=== PATIENT | male | born 1970 | race Caucasian/White ===

== ENCOUNTER 2024-06-27 16:11 | Emergency (ER) | payer MEDICARE, OTHER ==
[~2024-06-27] VITALS: Ht 185.4 cm; Wt 132.0 kg
[~2024-06-27 16:11] MED LIST: Amlodipine Bes2.5 MG PO; CALC.25 PO; HUMALOG100 UNIT/1; INSULANI SC; ONDA4ODT SL; ROSU10TA PO; SODBIC650 PO
[2024-06-27] MEDS ORDERED: NYSTATIN500000 UNI (20:34)
[2024-06-27] MEDS ORDERED: ZOLOFT50 MG (20:34)
[2024-06-27] MEDS ORDERED: PANTOPRAZOLE SO40 M2 (20:34)
[2024-06-27 20:38] LABS: BASOPHILS ABSOLUTE AUTO 0.01 K/mm3 (0.00-0.23); BASOPHILS PERCENT AUTO 0 % (0-2); EOSINOPHILS ABSOLUTE AUTO 0.61 K/mm3 (0.00-0.68); EOSINOPHILS PERCENT AUTO 5 % (0-6); Hematocrit 33.4 % (37.0-53.0); Hemoglobin 11.8 g/dL (13.5-17.5); IMMATURE GRAN ABSOLUTE AUTO 0.05 K/mm3 (0.00-0.10); IMMATURE GRAN PERCENT AUTO 0 % (0-1); LYMPHOCYTES ABSOLUTE AUTO 1.02 K/mm3 (0.84-5.20); LYMPHOCYTES PERCENT AUTO 9 % (21-46); MONOCYTES ABSOLUTE AUTO 0.56 K/mm3 (0.16-1.47); MONOCYTES PERCENT AUTO 5 % (4-13); Mean Corpuscular HGB 30.9 pg (26.0-34.0); Mean Corpuscular HGB Conc 35.3 g/dL (31.5-36.5); Mean Corpuscular Volume 87 fL (80-100); Mean Platelet Volume 10.5 fL (9.1-12.4); NEUTROPHILS ABSOLUTE AUTO 9.23 K/mm3 (1.96-9.15); NEUTROPHILS PERCENT AUTO 80 % (41-73); Platelet Count 254 K/mm3 (150-400); RDW Coefficient Variation 13.2 % (11.7-14.2); RDW Standard Deviation 41.6 fL (35.1-46.3); Red Blood Cell Count 3.82 M/mm3 (4.30-5.90); White Blood Cell Count 11.48 K/mm3 (4.00-11.30)
[2024-06-27 20:56] LABS: Bun/Creatinine Ratio 8.7 (12.0-20.0); C-REACTIVE PROTEIN, EXT RANGE 0.4 mg/dL (0.000-0.300); Creatinine, Blood 7.81 mg/dL (0.60-1.20); Potassium, Blood 3.9 mmol/L (3.5-5.5)
== END 2024-06-27 21:46 | disposition short-term general hospital (02) ==
LOC: ER 16:11
PROVIDERS: Emergency Medicine
DX: M54.50 Low back pain, unspecified (principal); R32 Unspecified urinary incontinence; E11.9 Type 2 diabetes mellitus without complications; I10 Essential (primary) hypertension; Z79.4 Long term (current) use of insulin; Z79.899 Other long term (current) drug therapy
CPT/HCPCS: 51798; 80048; 85025; 85651; 86140; 99284-25

== ENCOUNTER 2024-12-07 01:11 | Emergency (ER) | payer MEDICARE, OTHER ==
[~2024-12-07] VITALS: Ht 185.4 cm; Wt 136.5 kg
[~2024-12-07 01:11] MED LIST changes: +ANEFRIN; +Acetaminophen650 M1 PO; +CHLORPHENIRAMINE PO; +Calcium Acetat667 MG PO; +Crestor40 MG; +DELTASONE20 MG; +GABA100 PO; +GUAI600T33 PO; +HYDROCODONE PO; +LACT10SY PO; +LACTULOSE ENEMA; +LEVFLO500 PO; +LOSA25 PO; +MECL12.5 PO; +NYSTATIN500000 UNI; +ONDA4ODT MM; +OXYC5; +PANTOPRAZOLE SO40 M2; +PROM12.5S PR; +REGLAN1013 PO; +Robaxin750 MG; +ZOLOFT10013 PO; +ZOLOFT50 MG
[2024-12-07] MEDS ORDERED: FentaNYL Citrate 50 MCG/ML 2 ML Injection IV PRN (02:40)
[2024-12-07] MEDS ORDERED: TraMADol HCl 50 MG Tab PO ONE (02:40)
[2024-12-07] MEDS ORDERED: Ondansetron HCl 2 MG / ML 2ML Vial IV ONE (03:15)
== END 2024-12-07 03:41 | disposition other institution (70) ==
LOC: ER 01:11
DX: S82.831A Other fracture of upper and lower end of right fibula, initial encounter for closed fracture (principal); Z68.39 Body mass index [BMI] 39.0-39.9, adult; E11.22 Type 2 diabetes mellitus with diabetic chronic kidney disease; I12.0 Hypertensive chronic kidney disease with stage 5 chronic kidney disease or end stage renal disease; N18.5 Chronic kidney disease, stage 5; Z99.2 Dependence on renal dialysis; E11.40 Type 2 diabetes mellitus with diabetic neuropathy, unspecified; E78.5 Hyperlipidemia, unspecified; Z79.2 Long term (current) use of antibiotics; Z79.899 Other long term (current) drug therapy; Z79.4 Long term (current) use of insulin; W18.11XA Fall from or off toilet without subsequent striking against object, initial encounter; Y92.091 Bathroom in other non-institutional residence as the place of occurrence of the external cause
CPT/HCPCS: 29515; 72170; 73560-RT; 73620; 96374-59; 96375-59; 99284-25; A9270; J2405; J3010

== ENCOUNTER 2025-01-04 18:58 | Emergency (ER) | payer MEDICARE, OTHER ==
[~2025-01-04] VITALS: Ht 185.4 cm; Wt 131.5 kg
== END 2025-01-05 00:01 | disposition home or self-care (01) ==
LOC: ER 18:58
DX: H53.8 Other visual disturbances (principal); Z99.2 Dependence on renal dialysis; I10 Essential (primary) hypertension; E78.5 Hyperlipidemia, unspecified; E11.22 Type 2 diabetes mellitus with diabetic chronic kidney disease; E11.40 Type 2 diabetes mellitus with diabetic neuropathy, unspecified; N18.6 End stage renal disease; Z79.899 Other long term (current) drug therapy; Z79.4 Long term (current) use of insulin
CPT/HCPCS: 99284

== ENCOUNTER 2025-01-16 15:56 | Emergency (ER) | payer MEDICARE, OTHER ==
[~2025-01-16] VITALS: Ht 185.4 cm; Wt 145.2 kg
[2025-01-16] MEDS ORDERED: Ketorolac Tromethamine 30mg Vial IV ONE (16:20)
[2025-01-16] MEDS ORDERED: Prochlorperazine Edisylate 10 mg Vial IV ONE (16:20)
== END 2025-01-16 19:00 | disposition home or self-care (01) ==
LOC: ER 15:56
DX: H53.8 Other visual disturbances (principal); I12.0 Hypertensive chronic kidney disease with stage 5 chronic kidney disease or end stage renal disease; E11.22 Type 2 diabetes mellitus with diabetic chronic kidney disease; N18.6 End stage renal disease; E78.5 Hyperlipidemia, unspecified; Z91.09 Other allergy status, other than to drugs and biological substances; Z79.4 Long term (current) use of insulin; Z79.899 Other long term (current) drug therapy; Z79.52 Long term (current) use of systemic steroids
CPT/HCPCS: 70450; 93005; 93010; 96374; 96375; 99284-25; J0780; J1885